=== PATIENT | male | born 1965 | race Two or more races ===

== ENCOUNTER 2022-04-14 20:36 | Inpatient (IN) | payer MEDICAID, OTHER ==
[~2022-04-14] VITALS: Ht 170.2 cm; Wt 63.4 kg
[~2022-04-14 20:36] MED LIST: CLOPIDOGREL BISULFATE 75 MG TAB PO ONE
[2022-04-14] MEDS ORDERED: ATROPINE SULF 0.5 MG/5ML SYR ONE (20:40)
[2022-04-14] MEDS ORDERED: DOPamine 1600MCG/ML D5W 250 ML IV ONE ×2 (20:58→22:00)
[2022-04-14] MEDS ORDERED: SODIUM CHLORIDE 0.9% 1,000 ML IV ONE (21:00)
[2022-04-14] MEDS ORDERED: CALCIUM GLUC 1,000mg/50ml-NS 50 ML IV ONE (21:00)
[2022-04-14] MEDS ORDERED: MAGNESIUM SULFATE 1GM/100ML 100 ML IV SCH (21:00)
[2022-04-14] MEDS ORDERED: ASPirin 325 MG TAB PO ONE (21:00)
[2022-04-14] MEDS ORDERED: EPINEPHrine HCL 1 MG/10 ML SYRG ONE ×2 (21:15→21:56)
[2022-04-14] MEDS ORDERED: NITROGLYCERIN 0.4 MG SL TAB SL PRN (21:30)
[2022-04-14 21:31] LABS: Basophils # (auto) 0 10 ^3/uL (0-0.2); Basophils % (auto) 0.3 % (0.0-2.0); Eosinophils # (auto) 0.1 10 ^3/uL (0-0.8); Eosinophils % (auto) 0.6 % (0.0-7.0); Hematocrit 34.9 % (41.0-53.0); Hemoglobin 11.7 g/dL (13.5-17.5); Lymphocytes # (auto) 1.5 10 ^3/uL (0.4-5.4); Mean Corpuscular Hemoglobin 28.9 pg (28.0-32.0); Mean Corpuscular Hgb Conc. 33.6 g/dL (32.0-36.0); Mean Corpuscular Volume 86.1 fL (80.0-100.0); Monocytes % (auto) 10.9 % (0.0-12.0); Neutrophils # (auto) 6.4 10 ^3/uL (1.6-8.6); Neutrophils % (auto) 71.2 % (37.0-80.0); Nucleated Red Blood Cells % 0.1 %; Red Blood Cells 4.06 10^6/uL (4.5-5.90); Red Cell Distribution Width 12.6 % (11.8-14.3); White Blood Cell 8.9 10^3/uL (4.4-10.8)
[2022-04-14] MEDS ORDERED: fentaNYL CITRATE 100 MCG/2 ML VL ONE (21:32)
[2022-04-14] MEDS ORDERED: ANGIOMAX 250 MG VIAL IV ONE (21:32)
[2022-04-14] MEDS ORDERED: MIDAZOLAM HCL 2MG/2ML 2ml VIAL (1mg/ml) ONE (21:32)
[2022-04-14] MEDS ORDERED: LIDOCAINE 2%HCL (LOCAL ANESTH.) INJ 20ML MDV ONE (21:33)
[2022-04-14] MEDS ORDERED: IODIXANOL 320MG/ML 100ML BTL IV ONE ×2 (21:33→21:39)
[2022-04-14] MEDS ORDERED: SODIUM CHL 0.9% 50 ML ONE (21:33)
[2022-04-14 21:47] LABS: Albumin 2.6 g/dL (3.4-5.0); Calcium 7.5 mg/dL (8.5-10.1); Potassium 4.3 mmol/L (3.5-5.1)
[2022-04-14 21:49] LABS: Partial Thromboplastin Time 28.8 sec (24.6-33.4)
[2022-04-14 21:50] LABS: BUN/Creatinine Ratio 16.4; Bilirubin, Total 0.9 mg/dL (0.2-1.0)
[2022-04-14 21:53] LABS: Salicylate < 1.7 mg/dL (2.8-20.0)
[2022-04-14] MEDS ORDERED: ATROPINE SULF 1 MG/10ml SYR ONE (21:56)
[2022-04-14 21:57] LABS: Acetaminophen 4.8 ug/mL (10-30)
[2022-04-14 21:58] LABS: Lactic Acid w/Reflex 2.4 mmol/L (0.4-2.0)
[2022-04-14] MEDS ORDERED: ONDANSETRON HCL 4 MG/2 ML VIAL ONE (21:58)
[2022-04-14 22:09] LABS: Cholesterol 175 mg/dL (< 200); Triglycerides 85 mg/dL (< 150)
[2022-04-14] MEDS ORDERED: TICAGRELOR 90 MG TAB ONE (22:10)
[2022-04-14] MEDS ORDERED: ASPirin 81 mg TAB ONE (22:10)
[2022-04-14 22:12] LABS: HDL Cholesterol 64 mg/dL (40-59); LDL Cholesterol 95 mg/dL (< 100)
[2022-04-14] MEDS ORDERED: FUROSEMIDE 20 MG/2 ML VIAL ONE (22:12)
[2022-04-14 22:25] VITALS: BP 79/54
[2022-04-14 22:50] VITALS: BP 92/65
[2022-04-14 23:05] VITALS: BP 102/71
[2022-04-14 23:58] VITALS: BP 117/77
[2022-04-15] VITALS (96 sets, daily range): BP systolic 58–146; BP diastolic 35–85
[2022-04-15] MEDS: ONDANSETRON HCL 4 MG/2 ML VIAL IV PRN ×2 (01:00→07:57)
[2022-04-15 04:56] LABS: Basophils # (auto) 0 10 ^3/uL (0-0.2); Basophils % (auto) 0.3 % (0.0-2.0); Eosinophils # (auto) 0 10 ^3/uL (0-0.8); Eosinophils % (auto) 0.1 % (0.0-7.0); Hematocrit 36.8 % (41.0-53.0); Hemoglobin 12.8 g/dL (13.5-17.5); Lymphocytes # (auto) 1.3 10 ^3/uL (0.4-5.4); Mean Corpuscular Hemoglobin 28.7 pg (28.0-32.0); Mean Corpuscular Hgb Conc. 34.8 g/dL (32.0-36.0); Mean Corpuscular Volume 82.5 fL (80.0-100.0); Monocytes # (auto) 0.9 10 ^3/uL (0-1.3); Monocytes % (auto) 9.5 % (0.0-12.0); Neutrophils % (auto) 76.1 % (37.0-80.0); Red Blood Cells 4.47 10^6/uL (4.5-5.90); Red Cell Distribution Width 12.9 % (11.8-14.3); White Blood Cell 9.2 10^3/uL (4.4-10.8)
[2022-04-15 05:24] LABS: Albumin 2.9 g/dL (3.4-5.0); Potassium 3.7 mmol/L (3.5-5.1)
[2022-04-15 05:28] LABS: BUN/Creatinine Ratio 17.5; Bilirubin, Total 0.8 mg/dL (0.2-1.0); Total Protein 6.3 g/dL (6.4-8.2)
[2022-04-15] MEDS ORDERED: DEXTROSE (50%) 50ML SYRG IV PRN (10:15)
[2022-04-15] MEDS: ACCU-CHEK COMFORT CURVE STRIP VI SCH ×3 (11:09→22:14)
[2022-04-15] MEDS: INSULIN LANTUS (GLARGINE) 1 /0.01ml (100units/ml) SC SCH (11:09)
[2022-04-15] MEDS: InsuLIN REG 1unit/0.01ml Soln (100units/ml) SC SCH ×4 (11:10→22:27)
[2022-04-15] MEDS ORDERED: METOCLOPRAMIDE HCL 5MG/ml INJ 2ml VIAL IV PRN (12:00)
[2022-04-15] MEDS ORDERED: METOCLOPRAMIDE HCL 5MG/ml INJ 2ml VIAL ONE (12:01)
[2022-04-15] MEDS ORDERED: BRIMONIDINE 0.2% OPTH Soln 5ml EACHEYE SCH (14:00)
[2022-04-15] MEDS: ASPirin 81 mg TAB PO SCH (18:38)
[2022-04-15] MEDS: ATORVASTATIN 20 MG TAB PO SCH (18:39)
[2022-04-15] MEDS: DOPamine 1600MCG/ML D5W 250 ML IV SCH (20:10)
[2022-04-15] MEDS ORDERED: LATANOPROST 0.005 % OPTH(EYE) SOL 2.5ML EACHEYE SCH (22:00)
[2022-04-15] MEDS: EYE PO SCH (22:14)
[2022-04-15] MEDS: TIMOLOL PO SCH (22:14)
[2022-04-15] MEDS: DORZOLAMIDE PO SCH (22:14)
[2022-04-15] MEDS: BRIMONIDINE 0.2% OPTH Soln 5ml RIGHTEYE SCH (22:14)
[2022-04-15] MEDS: LATANOPROST 0.005 % OPTH(EYE) SOL 2.5ML RIGHTEYE SCH (22:14)
[2022-04-16] VITALS (96 sets, daily range): BP systolic 82–161; BP diastolic 47–95
[2022-04-16] MEDS: EYE PO SCH ×3 (05:59→21:35)
[2022-04-16] MEDS: TIMOLOL PO SCH ×3 (05:59→21:35)
[2022-04-16] MEDS: BRIMONIDINE 0.2% OPTH Soln 5ml RIGHTEYE SCH ×3 (05:59→21:36)
[2022-04-16] MEDS: DORZOLAMIDE PO SCH ×3 (05:59→21:35)
[2022-04-16] MEDS: MORPHINE SULFATE INJ 2 MG/ml SYRG IV PRN ×2 (06:10→16:46)
[2022-04-16] MEDS: ONDANSETRON HCL 4 MG/2 ML VIAL IV PRN (06:10)
[2022-04-16] MEDS: ACCU-CHEK COMFORT CURVE STRIP VI SCH ×4 (06:24→21:36)
[2022-04-16] MEDS: InsuLIN REG 1unit/0.01ml Soln (100units/ml) SC SCH ×3 (06:52→17:36)
[2022-04-16] MEDS: INSULIN LANTUS (GLARGINE) 1 /0.01ml (100units/ml) SC SCH (06:53)
[2022-04-16 09:14] LABS: Basophils # (auto) 0 10 ^3/uL (0-0.2); Basophils % (auto) 0.4 % (0.0-2.0); Eosinophils # (auto) 0.1 10 ^3/uL (0-0.8); Eosinophils % (auto) 0.7 % (0.0-7.0); Hematocrit 36.5 % (41.0-53.0); Hemoglobin 13.1 g/dL (13.5-17.5); Lymphocytes # (auto) 1.6 10 ^3/uL (0.4-5.4); Lymphocytes % (auto) 21.1 % (10.0-50.0); Mean Corpuscular Hemoglobin 29.1 pg (28.0-32.0); Mean Corpuscular Hgb Conc. 35.8 g/dL (32.0-36.0); Mean Corpuscular Volume 81.3 fL (80.0-100.0); Monocytes # (auto) 0.8 10 ^3/uL (0-1.3); Neutrophils # (auto) 5.2 10 ^3/uL (1.6-8.6); Neutrophils % (auto) 67.8 % (37.0-80.0); Red Blood Cells 4.49 10^6/uL (4.5-5.90); Red Cell Distribution Width 12.5 % (11.8-14.3); White Blood Cell 7.6 10^3/uL (4.4-10.8)
[2022-04-16 09:18] LABS: Albumin 2.9 g/dL (3.4-5.0); Calcium 8.1 mg/dL (8.5-10.1); Potassium 3.6 mmol/L (3.5-5.1)
[2022-04-16 09:21] LABS: BUN/Creatinine Ratio 21.3; Bilirubin, Total 0.9 mg/dL (0.2-1.0)
[2022-04-16] MEDS: CLOPIDOGREL BISULFATE 75 MG TAB PO SCH (09:42)
[2022-04-16] MEDS: ATORVASTATIN 20 MG TAB PO SCH (09:42)
[2022-04-16] MEDS: ASPirin 81 mg TAB PO SCH (09:42)
[2022-04-16] MEDS ORDERED: SODIUM CHLORIDE 0.9% 250 ML IV ONE (14:00)
[2022-04-16] MEDS: DOPamine 1600MCG/ML D5W 250 ML IV SCH (16:32)
[2022-04-16] MEDS: LATANOPROST 0.005 % OPTH(EYE) SOL 2.5ML RIGHTEYE SCH (21:41)
[2022-04-17] VITALS (90 sets, daily range): BP systolic 69–135; BP diastolic 39–108
[2022-04-17] MEDS: EYE PO SCH ×3 (05:44→21:44)
[2022-04-17] MEDS: DORZOLAMIDE PO SCH ×3 (05:44→21:44)
[2022-04-17] MEDS: TIMOLOL PO SCH ×3 (05:44→21:44)
[2022-04-17] MEDS: BRIMONIDINE 0.2% OPTH Soln 5ml RIGHTEYE SCH ×3 (05:45→21:43)
[2022-04-17] MEDS: ACCU-CHEK COMFORT CURVE STRIP VI SCH ×4 (06:26→21:48)
[2022-04-17] MEDS: InsuLIN REG 1unit/0.01ml Soln (100units/ml) SC SCH ×4 (06:27→21:53)
[2022-04-17] MEDS: INSULIN LANTUS (GLARGINE) 1 /0.01ml (100units/ml) SC SCH (06:29)
[2022-04-17] MEDS: CLOPIDOGREL BISULFATE 75 MG TAB PO SCH (09:03)
[2022-04-17] MEDS: ATORVASTATIN 20 MG TAB PO SCH (09:04)
[2022-04-17] MEDS: ASPirin 81 mg TAB PO SCH (09:04)
[2022-04-17] MEDS: DOPamine 1600MCG/ML D5W 250 ML IV SCH (14:42)
[2022-04-17] MEDS ORDERED: SENNA 8.6 MG TAB PO ONE (15:45)
[2022-04-17] MEDS: LATANOPROST 0.005 % OPTH(EYE) SOL 2.5ML RIGHTEYE SCH (21:43)
[2022-04-17] MEDS ORDERED: SENNA 8.6 MG TAB PO SCH (22:00)
[2022-04-17] MEDS ORDERED: PHENYLEPHRINE IV 250 ML IV ONE (23:39)
[2022-04-18] VITALS (94 sets, daily range): BP systolic 61–158; BP diastolic 28–97
[2022-04-18 05:00] LABS: Basophils # (auto) 0 10 ^3/uL (0-0.2); Basophils % (auto) 0.5 % (0.0-2.0); Eosinophils # (auto) 0.2 10 ^3/uL (0-0.8); Eosinophils % (auto) 2.4 % (0.0-7.0); Hematocrit 37.6 % (41.0-53.0); Hemoglobin 13.1 g/dL (13.5-17.5); Lymphocytes # (auto) 1.6 10 ^3/uL (0.4-5.4); Lymphocytes % (auto) 26.2 % (10.0-50.0); Mean Corpuscular Hemoglobin 28.3 pg (28.0-32.0); Mean Corpuscular Hgb Conc. 34.8 g/dL (32.0-36.0); Mean Corpuscular Volume 81.4 fL (80.0-100.0); Monocytes # (auto) 0.6 10 ^3/uL (0-1.3); Neutrophils # (auto) 3.8 10 ^3/uL (1.6-8.6); Neutrophils % (auto) 60.9 % (37.0-80.0); Red Blood Cells 4.62 10^6/uL (4.5-5.90); Red Cell Distribution Width 12.8 % (11.8-14.3); White Blood Cell 6.3 10^3/uL (4.4-10.8)
[2022-04-18 05:06] LABS: BUN/Creatinine Ratio 28.4; Calcium 8.6 mg/dL (8.5-10.1); Potassium 3.5 mmol/L (3.5-5.1)
[2022-04-18] MEDS: TIMOLOL PO SCH ×3 (06:42→22:46)
[2022-04-18] MEDS: DORZOLAMIDE PO SCH ×3 (06:42→22:46)
[2022-04-18] MEDS: BRIMONIDINE 0.2% OPTH Soln 5ml RIGHTEYE SCH ×3 (06:42→22:46)
[2022-04-18] MEDS: EYE PO SCH ×3 (06:42→22:46)
[2022-04-18] MEDS: InsuLIN REG 1unit/0.01ml Soln (100units/ml) SC SCH ×4 (06:44→22:47)
[2022-04-18] MEDS: ACCU-CHEK COMFORT CURVE STRIP VI SCH ×4 (06:45→22:46)
[2022-04-18] MEDS: INSULIN LANTUS (GLARGINE) 1 /0.01ml (100units/ml) SC SCH (06:55)
[2022-04-18] MEDS: DOPamine 1600MCG/ML D5W 250 ML IV SCH ×2 (06:56→22:50)
[2022-04-18] MEDS: ATORVASTATIN 20 MG TAB PO SCH (11:30)
[2022-04-18] MEDS: CLOPIDOGREL BISULFATE 75 MG TAB PO SCH (11:30)
[2022-04-18] MEDS: ASPirin 81 mg TAB PO SCH (11:30)
[2022-04-18] MEDS ORDERED: SENNA 8.6 MG TAB PO ONE (12:00)
[2022-04-18] MEDS: MORPHINE SULFATE INJ 2 MG/ml SYRG IV PRN ×2 (14:29→18:34)
[2022-04-18] MEDS ORDERED: SODIUM CHLORIDE 0.9% 250 ML IV ONE (14:45)
[2022-04-18] MEDS: LATANOPROST 0.005 % OPTH(EYE) SOL 2.5ML RIGHTEYE SCH (22:46)
[2022-04-19] VITALS (89 sets, daily range): BP systolic 63–153; BP diastolic 39–87
[2022-04-19] MEDS: MORPHINE SULFATE INJ 2 MG/ml SYRG IV PRN (02:44)
[2022-04-19] MEDS: InsuLIN REG 1unit/0.01ml Soln (100units/ml) SC SCH ×4 (07:00→22:00)
[2022-04-19 07:39] LABS: Urine Bacteria NONE SEEN /hpf (None Seen); Urine Blood 3+ /uL (Negative); Urine Specific Gravity 1.017 (1.001-1.035); Urine WBC 4 /hpf (0 - 3)
[2022-04-19] MEDS: INSULIN LANTUS (GLARGINE) 1 /0.01ml (100units/ml) SC SCH (07:39)
[2022-04-19] MEDS: ACCU-CHEK COMFORT CURVE STRIP VI SCH ×4 (07:44→23:15)
[2022-04-19] MEDS: DORZOLAMIDE PO SCH ×3 (07:46→23:15)
[2022-04-19] MEDS: BRIMONIDINE 0.2% OPTH Soln 5ml RIGHTEYE SCH ×3 (07:46→23:15)
[2022-04-19] MEDS: TIMOLOL PO SCH ×3 (07:46→23:15)
[2022-04-19] MEDS: EYE PO SCH ×3 (07:46→23:15)
[2022-04-19] MEDS: ATORVASTATIN 20 MG TAB PO SCH (10:34)
[2022-04-19] MEDS: ASPirin 81 mg TAB PO SCH (10:34)
[2022-04-19] MEDS: CLOPIDOGREL BISULFATE 75 MG TAB PO SCH (10:34)
[2022-04-19] MEDS: SENNA 8.6 MG TAB PO SCH (10:37)
[2022-04-19] MEDS ORDERED: SODIUM CHLORIDE 0.9% 500 ML IV ONE (11:45)
[2022-04-19] MEDS: MIDODRINE HCL 10 MG TAB PO SCH ×2 (12:27→18:17)
[2022-04-19] MEDS: ACETAMINOPHEN 500 MG TAB PO PRN (12:38)
[2022-04-19] MEDS: DOPamine 1600MCG/ML D5W 250 ML IV SCH (12:39)
[2022-04-19] MEDS ORDERED: TAMSULOSIN HYDROCHLORIDE 0.4 MG CAP PO SCH ×2 (18:00→19:00)
[2022-04-19] MEDS ORDERED: cefTRIAXone 1GM/50ML D5W 50 ML IV ONE (20:00)
[2022-04-19] MEDS: LATANOPROST 0.005 % OPTH(EYE) SOL 2.5ML RIGHTEYE SCH (23:15)
[2022-04-20] VITALS (89 sets, daily range): BP systolic 52–121; BP diastolic 27–76
[2022-04-20] MEDS: ACETAMINOPHEN 500 MG TAB PO PRN ×3 (01:03→21:13)
[2022-04-20] MEDS: TIMOLOL PO SCH ×3 (06:00→23:20)
[2022-04-20] MEDS: EYE PO SCH ×3 (06:00→23:20)
[2022-04-20] MEDS: BRIMONIDINE 0.2% OPTH Soln 5ml RIGHTEYE SCH ×3 (06:00→23:19)
[2022-04-20] MEDS: DORZOLAMIDE PO SCH ×3 (06:00→23:20)
[2022-04-20] MEDS: MIDODRINE HCL 10 MG TAB PO SCH ×3 (06:00→18:12)
[2022-04-20] MEDS: InsuLIN REG 1unit/0.01ml Soln (100units/ml) SC SCH ×4 (07:00→22:00)
[2022-04-20] MEDS: ACCU-CHEK COMFORT CURVE STRIP VI SCH ×4 (07:00→22:00)
[2022-04-20] MEDS: INSULIN LANTUS (GLARGINE) 1 /0.01ml (100units/ml) SC SCH (07:00)
[2022-04-20] MEDS: DOPamine 1600MCG/ML D5W 250 ML IV SCH ×2 (07:08→21:30)
[2022-04-20] MEDS ORDERED: cefTRIAXone 1GM/50ML D5W 50 ML IV SCH (09:00)
[2022-04-20] MEDS: ASPirin 81 mg TAB PO SCH (09:34)
[2022-04-20] MEDS: ATORVASTATIN 20 MG TAB PO SCH (09:35)
[2022-04-20] MEDS: SENNA 8.6 MG TAB PO SCH (09:35)
[2022-04-20] MEDS: CLOPIDOGREL BISULFATE 75 MG TAB PO SCH (09:35)
[2022-04-20] MEDS ORDERED: LACTULOSE 20Gm/30ML SOLN PO PRN (11:45)
[2022-04-20 11:56] LABS: Basophils # (auto) 0.2 10 ^3/uL (0-0.2); Basophils % (auto) 2.5 % (0.0-2.0); Eosinophils # (auto) 0.3 10 ^3/uL (0-0.8); Eosinophils % (auto) 4.7 % (0.0-7.0); Hematocrit 36.7 % (41.0-53.0); Hemoglobin 12.5 g/dL (13.5-17.5); Lymphocytes # (auto) 1.1 10 ^3/uL (0.4-5.4); Lymphocytes % (auto) 18.1 % (10.0-50.0); Mean Corpuscular Hemoglobin 27.5 pg (28.0-32.0); Mean Corpuscular Hgb Conc. 34.1 g/dL (32.0-36.0); Mean Corpuscular Volume 80.8 fL (80.0-100.0); Monocytes # (auto) 0.4 10 ^3/uL (0-1.3); Monocytes % (auto) 6.5 % (0.0-12.0); Neutrophils # (auto) 4.2 10 ^3/uL (1.6-8.6); Neutrophils % (auto) 68.2 % (37.0-80.0); Red Blood Cells 4.54 10^6/uL (4.5-5.90); Red Cell Distribution Width 12.4 % (11.8-14.3); White Blood Cell 6.2 10^3/uL (4.4-10.8)
[2022-04-20 12:14] LABS: Albumin 2.5 g/dL (3.4-5.0); BUN/Creatinine Ratio 35.2; Calcium 7.7 mg/dL (8.5-10.1); Potassium 4.5 mmol/L (3.5-5.1)
[2022-04-20 12:17] LABS: Bilirubin, Total 0.3 mg/dL (0.2-1.0)
[2022-04-20] MEDS ORDERED: SODIUM CHLORIDE 0.9% 1,500 ML IV ONE (15:45)
[2022-04-20] MEDS: LATANOPROST 0.005 % OPTH(EYE) SOL 2.5ML RIGHTEYE SCH (23:20)
[2022-04-21] VITALS (95 sets, daily range): BP systolic 69–128; BP diastolic 35–75
[2022-04-21 05:07] LABS: Basophils # (auto) 0.1 10 ^3/uL (0-0.2); Basophils % (auto) 0.7 % (0.0-2.0); Eosinophils # (auto) 0.4 10 ^3/uL (0-0.8); Eosinophils % (auto) 5.1 % (0.0-7.0); Hematocrit 34.4 % (41.0-53.0); Lymphocytes # (auto) 1.8 10 ^3/uL (0.4-5.4); Lymphocytes % (auto) 23.4 % (10.0-50.0); Mean Corpuscular Hemoglobin 28.4 pg (28.0-32.0); Mean Corpuscular Hgb Conc. 34.8 g/dL (32.0-36.0); Mean Corpuscular Volume 81.6 fL (80.0-100.0); Monocytes # (auto) 0.6 10 ^3/uL (0-1.3); Monocytes % (auto) 7.6 % (0.0-12.0); Neutrophils # (auto) 4.9 10 ^3/uL (1.6-8.6); Neutrophils % (auto) 63.2 % (37.0-80.0); Red Blood Cells 4.21 10^6/uL (4.5-5.90); Red Cell Distribution Width 12.4 % (11.8-14.3); White Blood Cell 7.7 10^3/uL (4.4-10.8)
[2022-04-21 05:22] LABS: Albumin 2.6 g/dL (3.4-5.0); Calcium 7.9 mg/dL (8.5-10.1); Potassium 4.1 mmol/L (3.5-5.1)
[2022-04-21 05:24] LABS: Bilirubin, Total 0.3 mg/dL (0.2-1.0); Total Protein 5.6 g/dL (6.4-8.2)
[2022-04-21] MEDS: EYE PO SCH ×3 (06:41→21:49)
[2022-04-21] MEDS: DORZOLAMIDE PO SCH ×3 (06:41→21:49)
[2022-04-21] MEDS: TIMOLOL PO SCH ×3 (06:41→21:49)
[2022-04-21] MEDS: BRIMONIDINE 0.2% OPTH Soln 5ml RIGHTEYE SCH ×3 (06:44→21:48)
[2022-04-21] MEDS: ACCU-CHEK COMFORT CURVE STRIP VI SCH ×4 (06:44→21:44)
[2022-04-21] MEDS: MIDODRINE HCL 10 MG TAB PO SCH ×3 (06:45→18:02)
[2022-04-21] MEDS: INSULIN LANTUS (GLARGINE) 1 /0.01ml (100units/ml) SC SCH (06:51)
[2022-04-21] MEDS: InsuLIN REG 1unit/0.01ml Soln (100units/ml) SC SCH ×4 (06:51→21:52)
[2022-04-21] MEDS: ASPirin 81 mg TAB PO SCH (10:31)
[2022-04-21] MEDS: CLOPIDOGREL BISULFATE 75 MG TAB PO SCH (10:32)
[2022-04-21] MEDS: ATORVASTATIN 20 MG TAB PO SCH (10:32)
[2022-04-21] MEDS: SENNA 8.6 MG TAB PO SCH (10:32)
[2022-04-21] MEDS: LATANOPROST 0.005 % OPTH(EYE) SOL 2.5ML RIGHTEYE SCH (21:48)
[2022-04-22] VITALS (32 sets, daily range): BP systolic 84–109; BP diastolic 50–71
[2022-04-22 05:19] LABS: Basophils # (auto) 0 10 ^3/uL (0-0.2); Basophils % (auto) 0.8 % (0.0-2.0); Eosinophils # (auto) 0.3 10 ^3/uL (0-0.8); Eosinophils % (auto) 4.3 % (0.0-7.0); Hematocrit 30.7 % (41.0-53.0); Hemoglobin 10.9 g/dL (13.5-17.5); Lymphocytes # (auto) 1.5 10 ^3/uL (0.4-5.4); Lymphocytes % (auto) 24.6 % (10.0-50.0); Mean Corpuscular Hemoglobin 28.5 pg (28.0-32.0); Mean Corpuscular Hgb Conc. 35.4 g/dL (32.0-36.0); Mean Corpuscular Volume 80.6 fL (80.0-100.0); Monocytes # (auto) 0.6 10 ^3/uL (0-1.3); Monocytes % (auto) 10.4 % (0.0-12.0); Neutrophils # (auto) 3.6 10 ^3/uL (1.6-8.6); Neutrophils % (auto) 59.9 % (37.0-80.0); Red Blood Cells 3.81 10^6/uL (4.5-5.90); Red Cell Distribution Width 12.7 % (11.8-14.3)
[2022-04-22 05:35] LABS: Albumin 2.5 g/dL (3.4-5.0); BUN/Creatinine Ratio 31.7; Calcium 7.8 mg/dL (8.5-10.1); Potassium 3.8 mmol/L (3.5-5.1)
[2022-04-22 05:47] LABS: Bilirubin, Total 0.3 mg/dL (0.2-1.0); Total Protein 5.2 g/dL (6.4-8.2)
[2022-04-22] MEDS: EYE PO SCH (06:07)
[2022-04-22] MEDS: BRIMONIDINE 0.2% OPTH Soln 5ml RIGHTEYE SCH (06:07)
[2022-04-22] MEDS: DORZOLAMIDE PO SCH (06:07)
[2022-04-22] MEDS: MIDODRINE HCL 10 MG TAB PO SCH (06:07)
[2022-04-22] MEDS: TIMOLOL PO SCH (06:07)
[2022-04-22] MEDS: INSULIN LANTUS (GLARGINE) 1 /0.01ml (100units/ml) SC SCH (07:00)
[2022-04-22] MEDS: InsuLIN REG 1unit/0.01ml Soln (100units/ml) SC SCH ×2 (07:00→11:39)
[2022-04-22] MEDS: ACCU-CHEK COMFORT CURVE STRIP VI SCH ×2 (07:23→11:39)
[2022-04-22] MEDS ORDERED: ATOR20TA50 PO (09:48)
[2022-04-22] MEDS ORDERED: CLOP75TA70 PO (09:48)
[2022-04-22] MEDS ORDERED: ASPI-325 PO (09:48)
[2022-04-22] MEDS: ASPirin 81 mg TAB PO SCH (09:59)
[2022-04-22] MEDS: SENNA 8.6 MG TAB PO SCH (10:00)
[2022-04-22] MEDS: CLOPIDOGREL BISULFATE 75 MG TAB PO SCH (10:00)
[2022-04-22] MEDS: ATORVASTATIN 20 MG TAB PO SCH (10:01)
== END 2022-04-22 12:04 | disposition home or self-care (01) | DRG 174 ==
LOC: ER 20:36 → EDBD 20:36 → TELE 21:20 → DOU IN ICU 23:46 → ICU CENTRL 04-15 00:06
PROVIDERS: ADMIT Registered Nurse; ATTEND Internal Medicine Pulmonary Disease
PROC: B211YZZ Fluoroscopy of Multiple Coronary Arteries using Other Contrast (ICD-10-PCS; principal; 2022-04-14)
PROC: 027034Z Dilation of Coronary Artery, One Artery with Drug-eluting Intraluminal Device, Percutaneous Approach (ICD-10-PCS; 2022-04-14)
PROC: 4A023N7 Measurement of Cardiac Sampling and Pressure, Left Heart, Percutaneous Approach (ICD-10-PCS; 2022-04-14)
PROC: B41JYZZ Fluoroscopy of Other Lower Arteries using Other Contrast (ICD-10-PCS; 2022-04-14)
DX: I21.19 ST elevation (STEMI) myocardial infarction involving other coronary artery of inferior wall (principal); R57.0 Cardiogenic shock; I95.9 Hypotension, unspecified; I48.91 Unspecified atrial fibrillation; E11.65 Type 2 diabetes mellitus with hyperglycemia; I49.8 Other specified cardiac arrhythmias; Z20.822 Contact with and (suspected) exposure to COVID-19; I10 Essential (primary) hypertension; R31.0 Gross hematuria; Z79.02 Long term (current) use of antithrombotics/antiplatelets; Z79.4 Long term (current) use of insulin; Z79.82 Long term (current) use of aspirin
CPT/HCPCS: 36415; 36600; 71045; 75710; 80048; 80053; 80061; 80329; 81001; 82010; 82533; 82553; 82805; 82962; 83036; 83605; 83690; 83735; 83930; 84154; 84443; 84484; 85025; 85610; 85730; 87040; 87077; 87081; 87186; 87426; 92928; 93005; 93306; 93458; 96365; 96368; 99152; 99291; C1874; G0378; J0461; J0696; J1815; J2250; J2405; Q9967

== ENCOUNTER 2022-05-27 14:28 | Inpatient (IN) | payer MEDICAID ==
[~2022-05-27] VITALS: Ht 165.1 cm; Wt 63.5 kg
[~2022-05-27 14:28] MED LIST changes: +ASPI-325 PO; +ATOR20TA50 PO; +CLOP75TA70 PO; -CLOPIDOGREL BISULFATE 75 MG TAB PO ONE
[2022-05-27] MEDS ORDERED: SODIUM CHLORIDE 0.9% 500 ML IV ONE (15:00)
[2022-05-27 15:14] LABS: Basophils # (auto) 0 10 ^3/uL (0-0.2); Basophils % (auto) 0.9 % (0.0-2.0); Eosinophils # (auto) 0.2 10 ^3/uL (0-0.8); Eosinophils % (auto) 3.6 % (0.0-7.0); Hematocrit 33.1 % (41.0-53.0); Hemoglobin 11.5 g/dL (13.5-17.5); Lymphocytes # (auto) 1.7 10 ^3/uL (0.4-5.4); Lymphocytes % (auto) 36.8 % (10.0-50.0); Mean Corpuscular Hemoglobin 28.1 pg (28.0-32.0); Mean Corpuscular Hgb Conc. 34.8 g/dL (32.0-36.0); Mean Corpuscular Volume 80.7 fL (80.0-100.0); Monocytes # (auto) 0.3 10 ^3/uL (0-1.3); Monocytes % (auto) 6.6 % (0.0-12.0); Neutrophils # (auto) 2.4 10 ^3/uL (1.6-8.6); Neutrophils % (auto) 52.1 % (37.0-80.0); Red Blood Cells 4.11 10^6/uL (4.5-5.90); Red Cell Distribution Width 13.5 % (11.8-14.3); White Blood Cell 4.6 10^3/uL (4.4-10.8)
[2022-05-27 15:27] LABS: Albumin 3.3 g/dL (3.4-5.0); Calcium 8.6 mg/dL (8.5-10.1); Potassium 4.5 mmol/L (3.5-5.1)
[2022-05-27 15:34] LABS: Bilirubin, Total 0.5 mg/dL (0.2-1.0); Total Protein 6.2 g/dL (6.4-8.2)
[2022-05-27 15:35] LABS: INR 0.93 (0.9-1.15); Partial Thromboplastin Time 26.6 sec (24.6-33.4)
[2022-05-27] MEDS ORDERED: MORPHINE SULFATE INJ 2 MG/ml SYRG IV PRN (21:00)
[2022-05-27] MEDS ORDERED: ONDANSETRON HCL 4 MG/2 ML VIAL IV PRN (21:00)
[2022-05-27] MEDS ORDERED: TEMAZEPAM 15 MG CAP PO PRN (21:00)
[2022-05-27] MEDS ORDERED: NITROGLYCERIN 0.4 MG SL TAB SL PRN (21:00)
[2022-05-28 04:41] LABS: Basophils # (auto) 0 10 ^3/uL (0-0.2); Eosinophils # (auto) 0.2 10 ^3/uL (0-0.8); Eosinophils % (auto) 3.6 % (0.0-7.0); Hemoglobin 12.3 g/dL (13.5-17.5); Lymphocytes # (auto) 1.3 10 ^3/uL (0.4-5.4); Lymphocytes % (auto) 26.3 % (10.0-50.0); Mean Corpuscular Hemoglobin 28.1 pg (28.0-32.0); Mean Corpuscular Hgb Conc. 34.1 g/dL (32.0-36.0); Mean Corpuscular Volume 82.3 fL (80.0-100.0); Monocytes # (auto) 0.4 10 ^3/uL (0-1.3); Monocytes % (auto) 7.2 % (0.0-12.0); Neutrophils # (auto) 3.1 10 ^3/uL (1.6-8.6); Neutrophils % (auto) 61.9 % (37.0-80.0); Nucleated Red Blood Cells % 0.1 %; Red Blood Cells 4.38 10^6/uL (4.5-5.90); Red Cell Distribution Width 13.7 % (11.8-14.3)
[2022-05-28 04:57] LABS: Calcium 8.9 mg/dL (8.5-10.1); Potassium 4.6 mmol/L (3.5-5.1)
[2022-05-28] MEDS: ATORVASTATIN 20 MG TAB PO SCH ×2 (05:19→22:28)
[2022-05-28] MEDS: ACETAMINOPHEN 325 MG TAB PO PRN ×3 (05:22→22:28)
[2022-05-28] MEDS: ASPirin 81 mg TAB PO SCH (13:18)
[2022-05-28] MEDS: CLOPIDOGREL BISULFATE 75 MG TAB PO SCH (13:18)
[2022-05-28] MEDS: PANTOPRAZOLE 40 MG TAB PO SCH (13:19)
[2022-05-28] MEDS: ENOXAPARIN SOD 40 MG/0.4 ML SYRINGE SC SCH (13:19)
[2022-05-28] MEDS ORDERED: DEXTROSE (50%) 50ML SYRG IV PRN (18:45)
[2022-05-28 22:00] VITALS: BP 119/73
[2022-05-28] MEDS: InsuLIN REG 1unit/0.01ml Soln (100units/ml) SC SCH (22:00)
[2022-05-28] MEDS ORDERED: PATIENTS OWN MEDICATION EACHEYE SCH ×2 (22:00)
[2022-05-28 22:10] VITALS: BP 119/73
[2022-05-28] MEDS: ACCU-CHEK COMFORT CURVE STRIP VI SCH (22:20)
[2022-05-29 02:07] LABS: Urine WBC None Seen /hpf (0 - 3)
[2022-05-29 02:14] LABS: Urine Bacteria NONE SEEN /hpf (None Seen); Urine Blood Negative /uL (Negative); Urine Specific Gravity 1.009 (1.001-1.035); Urine Sperm PRESENT /hpf (None Seen)
[2022-05-29 05:00] VITALS: BP 127/80
[2022-05-29] MEDS: ACCU-CHEK COMFORT CURVE STRIP VI SCH ×4 (06:44→21:59)
[2022-05-29] MEDS: InsuLIN REG 1unit/0.01ml Soln (100units/ml) SC SCH ×4 (06:44→21:58)
[2022-05-29 07:37] LABS: Cholesterol 127 mg/dL (< 200)
[2022-05-29 07:40] LABS: HDL Cholesterol 69 mg/dL (40-59); LDL Cholesterol 57 mg/dL (< 100); Triglycerides 71 mg/dL (< 150)
[2022-05-29 08:00] VITALS: BP 116/68
[2022-05-29] MEDS: ACETAMINOPHEN 325 MG TAB PO PRN (10:10)
[2022-05-29] MEDS: ENOXAPARIN SOD 40 MG/0.4 ML SYRINGE SC SCH (10:10)
[2022-05-29] MEDS: PANTOPRAZOLE 40 MG TAB PO SCH (10:10)
[2022-05-29] MEDS: CLOPIDOGREL BISULFATE 75 MG TAB PO SCH (10:10)
[2022-05-29] MEDS: ASPirin 81 mg TAB PO SCH (10:15)
[2022-05-29 12:00] VITALS: BP 117/71
[2022-05-29] MEDS ORDERED: BRIMONIDINE 0.2% OPTH Soln 5ml RIGHTEYE SCH ×2 (12:00→14:00)
[2022-05-29] MEDS: BRIMONIDINE 0.2% RIGHTEYE SCH ×3 (13:26→21:52)
[2022-05-29] MEDS: EYE RIGHTEYE SCH ×2 (14:30→21:50)
[2022-05-29] MEDS: DORZOLAMIDE TIMOLOL RIGHTEYE SCH ×2 (14:30→21:50)
[2022-05-29 16:00] VITALS: BP 115/69
[2022-05-29] MEDS: ATORVASTATIN 20 MG TAB PO SCH (21:51)
[2022-05-29] MEDS: LATANOPROST 0.005 % OPTH(EYE) SOL 2.5ML RIGHTEYE SCH (21:56)
[2022-05-29 22:00] VITALS: BP 111/59
[2022-05-30 05:00] VITALS: BP 105/65
[2022-05-30] MEDS: BRIMONIDINE 0.2% RIGHTEYE SCH ×3 (05:34→21:37)
[2022-05-30] MEDS: DORZOLAMIDE TIMOLOL RIGHTEYE SCH ×3 (05:34→21:37)
[2022-05-30] MEDS: EYE RIGHTEYE SCH ×3 (05:34→21:37)
[2022-05-30] MEDS: ACCU-CHEK COMFORT CURVE STRIP VI SCH ×4 (06:25→21:47)
[2022-05-30] MEDS: InsuLIN REG 1unit/0.01ml Soln (100units/ml) SC SCH ×4 (06:26→21:49)
[2022-05-30 08:00] VITALS: BP 107/72
[2022-05-30] MEDS: PANTOPRAZOLE 40 MG TAB PO SCH (09:51)
[2022-05-30] MEDS: CLOPIDOGREL BISULFATE 75 MG TAB PO SCH (09:51)
[2022-05-30] MEDS: ASPirin 81 mg TAB PO SCH (09:51)
[2022-05-30] MEDS: ENOXAPARIN SOD 40 MG/0.4 ML SYRINGE SC SCH (09:52)
[2022-05-30 12:00] VITALS: BP 117/72
[2022-05-30 16:00] VITALS: BP 116/75
[2022-05-30] MEDS: ATORVASTATIN 20 MG TAB PO SCH (21:36)
[2022-05-30] MEDS: ACETAMINOPHEN 325 MG TAB PO PRN (21:36)
[2022-05-30] MEDS: LATANOPROST 0.005 % OPTH(EYE) SOL 2.5ML RIGHTEYE SCH (21:38)
[2022-05-30 22:00] VITALS: BP 100/50
[2022-05-31 05:00] VITALS: BP 114/72
[2022-05-31] MEDS: DORZOLAMIDE TIMOLOL RIGHTEYE SCH ×2 (05:38→14:07)
[2022-05-31] MEDS: BRIMONIDINE 0.2% RIGHTEYE SCH ×2 (05:38→14:07)
[2022-05-31] MEDS: EYE RIGHTEYE SCH ×2 (05:38→14:07)
[2022-05-31] MEDS: ACCU-CHEK COMFORT CURVE STRIP VI SCH ×3 (05:58→17:00)
[2022-05-31] MEDS: InsuLIN REG 1unit/0.01ml Soln (100units/ml) SC SCH ×3 (05:59→18:35)
[2022-05-31 09:25] VITALS: BP 107/61
[2022-05-31] MEDS: ENOXAPARIN SOD 40 MG/0.4 ML SYRINGE SC SCH (09:45)
[2022-05-31] MEDS: PANTOPRAZOLE 40 MG TAB PO SCH (09:45)
[2022-05-31] MEDS: ASPirin 81 mg TAB PO SCH (09:45)
[2022-05-31] MEDS: CLOPIDOGREL BISULFATE 75 MG TAB PO SCH (09:45)
[2022-05-31 13:00] VITALS: BP 122/68
[2022-05-31 17:05] VITALS: BP 117/68
[2022-05-31 21:50] VITALS: BP 117/61
[2022-05-31 22:00] VITALS: BP 108/66
== END 2022-05-31 22:30 | disposition home or self-care (01) | DRG 203 ==
LOC: ER 14:28 → TELE 21:03 → TELE-EAST 05-28 21:17
PROVIDERS: ADMIT Nurse Practitioner; ATTEND Internal Medicine Geriatric Medicine
DX: M94.0 Chondrocostal junction syndrome [Tietze] (principal); I95.9 Hypotension, unspecified; E11.319 Type 2 diabetes mellitus with unspecified diabetic retinopathy without macular edema; I25.110 Atherosclerotic heart disease of native coronary artery with unstable angina pectoris; E78.5 Hyperlipidemia, unspecified; H54.62 Unqualified visual loss, left eye, normal vision right eye; H53.9 Unspecified visual disturbance; R51.9 Headache, unspecified; R79.89 Other specified abnormal findings of blood chemistry; Z20.822 Contact with and (suspected) exposure to COVID-19; I25.2 Old myocardial infarction; Z82.49 Family history of ischemic heart disease and other diseases of the circulatory system; Z83.3 Family history of diabetes mellitus; Z95.5 Presence of coronary angioplasty implant and graft
CPT/HCPCS: 36415; 70450; 70551; 71045; 78582; 80048; 80053; 80061; 81001; 82962; 83735; 84484; 85025; 85379; 85610; 85730; 87426; 93005; G0378; J1815

== ENCOUNTER → 2022-06-02 | Outpatient (CLI) | payer MEDICAID ==
[2022-06-02 08:51] LABS: Calcium 9.4 mg/dL (8.5-10.1); Potassium 4.8 mmol/L (3.5-5.1)
[2022-06-02 08:56] LABS: BUN/Creatinine Ratio 31.6; Bilirubin, Total 0.6 mg/dL (0.2-1.0); Total Protein 7.8 g/dL (6.4-8.2)
== END | disposition home or self-care (01) ==
LOC: LAB 07:46
PROVIDERS: ATTEND Internal Medicine
DX: Z12.11 Encounter for screening for malignant neoplasm of colon (principal); E11.9 Type 2 diabetes mellitus without complications
CPT/HCPCS: 36415; 80053; 82043; 83036

== ENCOUNTER → 2022-07-01 | Outpatient (CLI) | payer MEDICAID ==
[2022-07-01 11:40] LABS: Albumin 3.8 g/dL (3.4-5.0); Bilirubin, Direct 0.2 mg/dL (0-0.2)
[2022-07-01 11:43] LABS: Bilirubin, Total 0.6 mg/dL (0.2-1.0); Total Protein 7.3 g/dL (6.4-8.2)
== END | disposition home or self-care (01) ==
LOC: LAB 10:34
PROVIDERS: ATTEND Internal Medicine
DX: Z12.11 Encounter for screening for malignant neoplasm of colon (principal); R79.89 Other specified abnormal findings of blood chemistry
CPT/HCPCS: 36415; 80076; 82270

== ENCOUNTER → 2022-07-24 | Outpatient (CLI) | payer MEDICAID ==
[2022-07-24 11:33] LABS: Albumin 3.8 g/dL (3.4-5.0)
[2022-07-24 11:36] LABS: Bilirubin, Direct 0.1 mg/dL (0-0.2); Bilirubin, Total 0.4 mg/dL (0.2-1.0); Total Protein 7.2 g/dL (6.4-8.2)
== END | disposition home or self-care (01) ==
LOC: LAB 08:38
PROVIDERS: ATTEND Internal Medicine
DX: E11.9 Type 2 diabetes mellitus without complications (principal); E78.5 Hyperlipidemia, unspecified
CPT/HCPCS: 36415; 80076

== ENCOUNTER → 2022-07-27 | Outpatient (CLI) | payer MEDICAID | END | disposition home or self-care (01) | LOC: Rad HDHVI 08:09 | PROVIDERS: ATTEND Internal Medicine Cardiovascular Disease | DX: I77.819 Aortic ectasia, unspecified site (principal); R07.9 Chest pain, unspecified; R42 Dizziness and giddiness | CPT/HCPCS: 93306 ==

== ENCOUNTER → 2022-07-30 | Outpatient (CLI) | payer MEDICAID ==
[~2022-07-30] VITALS: Ht 165.1 cm; Wt 64.4 kg
[~2022-07-30] MED LIST changes: +ADENOSINE 54 MG in GIVE UN-DILUTED 0 ML IV ONE; +ADENOSINE 90 MG/30 ML INJ IV ONE
== END | disposition home or self-care (01) ==
LOC: Rad HDHVI 13:20
PROVIDERS: ATTEND Internal Medicine Cardiovascular Disease
DX: I25.10 Atherosclerotic heart disease of native coronary artery without angina pectoris (principal); I25.2 Old myocardial infarction; E11.9 Type 2 diabetes mellitus without complications; R07.9 Chest pain, unspecified; Z82.49 Family history of ischemic heart disease and other diseases of the circulatory system
CPT/HCPCS: 78452; 93005; 96374; 96375; A9500; J0153

== ENCOUNTER → 2022-11-04 | Outpatient (CLI) | payer MEDICAID ==
[~2022-11-04] MED LIST changes: -ADENOSINE 54 MG in GIVE UN-DILUTED 0 ML IV ONE; -ADENOSINE 90 MG/30 ML INJ IV ONE
[2022-11-04 11:34] LABS: Micro Albumin 83.7 mg/L (0-30.0)
== END | disposition home or self-care (01) ==
LOC: LAB 09:42
PROVIDERS: ATTEND Internal Medicine
DX: E11.42 Type 2 diabetes mellitus with diabetic polyneuropathy (principal)
CPT/HCPCS: 36415; 82043; 82570; 83036

== ENCOUNTER → 2023-02-02 | Outpatient (CLI) | payer MEDICAID ==
[2023-02-02 10:13] VITALS: BP 108/68; PULSE 81; RESP 16; O2SAT 97
[2023-02-02 10:25] VITALS: BP 110/67; PULSE 79; RESP 16; O2SAT 97
== END | disposition home or self-care (01) ==
LOC: CHF HDHVI 10:06
PROVIDERS: ATTEND Internal Medicine Cardiovascular Disease
DX: Z01.818 Encounter for other preprocedural examination (principal); I20.9 Angina pectoris, unspecified; R55 Syncope and collapse; I95.89 Other hypotension; R00.2 Palpitations; I44.4 Left anterior fascicular block; R94.31 Abnormal electrocardiogram [ECG] [EKG]
CPT/HCPCS: 93005; G0463

== ENCOUNTER 2023-02-04 09:59 | Day surgery (SDC) | payer MEDICAID ==
[2023-02-02 11:17] LABS: Basophils # (auto) 0 10 ^3/uL (0-0.2); Basophils % (auto) 0.9 % (0.0-2.0); Eosinophils # (auto) 0.1 10 ^3/uL (0-0.8); Eosinophils % (auto) 2.9 % (0.0-7.0); Hematocrit 40.1 % (41.0-53.0); Hemoglobin 13.6 g/dL (13.5-17.5); Lymphocytes # (auto) 1.5 10 ^3/uL (0.4-5.4); Lymphocytes % (auto) 32.7 % (10.0-50.0); Mean Corpuscular Hemoglobin 28.6 pg (28.0-32.0); Monocytes # (auto) 0.4 10 ^3/uL (0-1.3); Monocytes % (auto) 7.8 % (0.0-12.0); Neutrophils # (auto) 2.6 10 ^3/uL (1.6-8.6); Neutrophils % (auto) 55.7 % (37.0-80.0); Nucleated Red Blood Cells % 0.1 %; Red Blood Cells 4.77 10^6/uL (4.5-5.90); Red Cell Distribution Width 13.4 % (11.8-14.3); White Blood Cell 4.6 10^3/uL (4.4-10.8)
[2023-02-02 11:33] LABS: Calcium 9.7 mg/dL (8.7-10.4); Chloride 105 mmol/L (98-107); Potassium 4.9 mmol/L (3.5-5.1); Sodium 139 mmol/L (136-145)
[2023-02-02 11:34] LABS: Anion Gap 3 (5-15); Carbon Dioxide 31 mmol/L (20-30)
[2023-02-02 11:39] LABS: BUN/Creatinine Ratio 22.7 (10.0-20.0); Blood Urea Nitrogen 22 mg/dL (9-23); Glucose 132 mg/dL (74-106); INR 0.96 (0.9-1.15); Partial Thromboplastin Time 27.1 SEC (24.5-34.5); Prothrombin Time 10.1 sec (9.3-11.8)
[~2023-02-04] VITALS: Ht 165.1 cm; Wt 59.9 kg
[2023-02-04] VITALS (11 sets, daily range): BP systolic 85–127; BP diastolic 53–80; PULSE 68–73; RESP 10–14; TEMP 97.6; O2SAT 93–100
[2023-02-04] MEDS ORDERED: ANGIOMAX 250 MG VIAL IV ONE (12:27)
[2023-02-04] MEDS ORDERED: LIDOCAINE 2%HCL (LOCAL ANESTH.) INJ 20ML MDV ONE (12:27)
[2023-02-04] MEDS ORDERED: IOHEXOL 350 MG/ML 100ML IJ ONE (12:27)
[2023-02-04] MEDS ORDERED: fentaNYL CITRATE 100 MCG/2 ML VL ONE (12:29)
[2023-02-04] MEDS ORDERED: SODIUM CHL 0.9% 0 ML ONE (12:30)
[2023-02-04] MEDS ORDERED: MIDAZOLAM HCL 2MG/2ML 2ml VIAL (1mg/ml) ONE (12:30)
== END 2023-02-04 15:20 | disposition home or self-care (01) ==
LOC: CATH 09:59
PROVIDERS: ATTEND Internal Medicine Cardiovascular Disease
DX: R07.89 Other chest pain (principal); I25.2 Old myocardial infarction; E78.5 Hyperlipidemia, unspecified; I11.0 Hypertensive heart disease with heart failure; I50.9 Heart failure, unspecified; Z87.891 Personal history of nicotine dependence; J44.9 Chronic obstructive pulmonary disease, unspecified; Z79.899 Other long term (current) drug therapy; Z98.890 Other specified postprocedural states
CPT/HCPCS: 36415; 80048; 85025; 85610; 85730; 93458; C1894; J1644; J2250; J3010; 99152

== ENCOUNTER 2023-03-01 14:44 | Emergency (ER) | payer MEDICAID ==
[~2023-03-01] VITALS: Ht 165.1 cm; Wt 64.7 kg
[2023-03-01 15:10] VITALS: PULSE 88; RESP 16; O2SAT 98
[2023-03-01 16:32] LABS: Basophils # (auto) 0 10 ^3/uL (0-0.2); Basophils % (auto) 0.7 % (0.0-2.0); Eosinophils # (auto) 0.1 10 ^3/uL (0-0.8); Eosinophils % (auto) 2.4 % (0.0-7.0); Hematocrit 38.2 % (41.0-53.0); Hemoglobin 12.9 g/dL (13.5-17.5); Lymphocytes # (auto) 1.7 10 ^3/uL (0.4-5.4); Lymphocytes % (auto) 29.4 % (10.0-50.0); Mean Corpuscular Hemoglobin 28.2 pg (28.0-32.0); Mean Corpuscular Hgb Conc. 33.8 g/dL (32.0-36.0); Mean Corpuscular Volume 83.4 fL (80.0-100.0); Monocytes # (auto) 0.4 10 ^3/uL (0-1.3); Neutrophils # (auto) 3.5 10 ^3/uL (1.6-8.6); Neutrophils % (auto) 60.5 % (37.0-80.0); Nucleated Red Blood Cells % 0.1 %; Red Blood Cells 4.58 10^6/uL (4.5-5.90); Red Cell Distribution Width 13.2 % (11.8-14.3); White Blood Cell 5.8 10^3/uL (4.4-10.8)
[2023-03-01 17:21] LABS: INR 0.96 (0.9-1.15); Prothrombin Time 10.3 sec (9.3-11.8)
[2023-03-01 17:53] LABS: Alanine Aminotransferase 47 U/L (7-40); Albumin 4.6 g/dL (3.2-4.8); Alkaline Phosphatase 122 U/L (46-116); Anion Gap 6 (5-15); Aspartate Aminotransferase 32 U/L (13-40); BUN/Creatinine Ratio 19.8 (10.0-20.0); Blood Urea Nitrogen 19 mg/dL (9-23); Calcium 9.3 mg/dL (8.7-10.4); Carbon Dioxide 26 mmol/L (20-30); Chloride 109 mmol/L (98-107); Glucose 124 mg/dL (74-106); Potassium 4.1 mmol/L (3.5-5.1); Sodium 141 mmol/L (136-145)
[2023-03-01 17:54] LABS: Bilirubin, Total 0.6 mg/dL (0.2-1.0); Total Protein 7.2 g/dL (5.7-8.2)
[2023-03-01 19:30] VITALS: BP 109/71; PULSE 84; RESP 14; TEMP 97.7; O2SAT 95
== END 2023-03-01 20:40 | disposition home or self-care (01) ==
LOC: ER 14:44
DX: H33.21 Serous retinal detachment, right eye (principal); H43.11 Vitreous hemorrhage, right eye; H21.01 Hyphema, right eye; E11.9 Type 2 diabetes mellitus without complications; E78.5 Hyperlipidemia, unspecified; I25.2 Old myocardial infarction; Z79.899 Other long term (current) drug therapy
CPT/HCPCS: 36415; 80053; 85025; 85610

== ENCOUNTER → 2023-05-06 | Outpatient (CLI) | payer MEDICAID ==
[2023-05-06 09:14] LABS: Chloride 109 mmol/L (98-107); Potassium 4.6 mmol/L (3.5-5.1); Sodium 140 mmol/L (136-145)
[2023-05-06 09:15] LABS: Anion Gap 4 (5-15); Carbon Dioxide 27 mmol/L (20-30)
[2023-05-06 09:16] LABS: Calcium 9.5 mg/dL (8.5-10.1)
[2023-05-06 09:20] LABS: BUN/Creatinine Ratio 21.4 (10.0-20.0); Blood Urea Nitrogen 22 mg/dL (9-23); Creatinine, Urine 62.92 mg/dL (30.0-125.0); Glucose 144 mg/dL (74-106)
== END | disposition home or self-care (01) ==
LOC: LAB 08:11
PROVIDERS: ATTEND Internal Medicine
DX: E11.9 Type 2 diabetes mellitus without complications (principal)
CPT/HCPCS: 36415; 80048; 82043; 82570; 83036

== ENCOUNTER → 2023-09-21 | Outpatient (CLI) | payer MEDICAID ==
[2023-09-21 11:02] LABS: Cholesterol 165 mg/dL (< 200); Triglycerides 67 mg/dL (< 150)
[2023-09-21 11:03] LABS: LDL Cholesterol 95 mg/dL (< 100)
[2023-09-21 11:04] LABS: HDL Cholesterol 61 mg/dL (40-59)
== END | disposition home or self-care (01) ==
LOC: LAB 09:58
PROVIDERS: ATTEND Internal Medicine
DX: R10.9 Unspecified abdominal pain (principal); R19.8 Other specified symptoms and signs involving the digestive system and abdomen
CPT/HCPCS: 36415; 80061; 83036

== ENCOUNTER → 2023-09-28 | Outpatient (CLI) | payer MEDICAID | END | disposition home or self-care (01) | LOC: LAB 14:44 | PROVIDERS: ATTEND Internal Medicine | DX: R10.9 Unspecified abdominal pain (principal); R19.8 Other specified symptoms and signs involving the digestive system and abdomen | CPT/HCPCS: 87045; 87427 ==

== ENCOUNTER → 2023-11-24 | Outpatient (CLI) | payer MEDICAID ==
[2023-11-24 08:23] LABS: Basophils # (auto) 0.1 10 ^3/uL (0-0.2); Basophils % (auto) 1.1 % (0.0-2.0); Eosinophils # (auto) 0.1 10 ^3/uL (0-0.8); Eosinophils % (auto) 2.8 % (0.0-7.0); Hemoglobin 13.1 g/dL (13.5-17.5); Lymphocytes # (auto) 1.6 10 ^3/uL (0.4-5.4); Lymphocytes % (auto) 34.7 % (10.0-50.0); Mean Corpuscular Hemoglobin 28.9 pg (28.0-32.0); Mean Corpuscular Hgb Conc. 34.4 g/dL (32.0-36.0); Monocytes # (auto) 0.3 10 ^3/uL (0-1.3); Monocytes % (auto) 7.3 % (0.0-12.0); Neutrophils # (auto) 2.5 10 ^3/uL (1.6-8.6); Neutrophils % (auto) 54.1 % (37.0-80.0); Nucleated Red Blood Cells % 0.1 %; Red Blood Cells 4.52 10^6/uL (4.5-5.90); Red Cell Distribution Width 13.6 % (11.8-14.3); White Blood Cell 4.7 10^3/uL (4.4-10.8)
[2023-11-24 09:02] LABS: Chloride 107 mmol/L (98-107); Potassium 4.6 mmol/L (3.5-5.1); Sodium 141 mmol/L (136-145)
[2023-11-24 09:03] LABS: Anion Gap 5 (5-15); Calcium 9.5 mg/dL (8.7-10.4); Carbon Dioxide 29 mmol/L (20-30)
[2023-11-24 09:08] LABS: BUN/Creatinine Ratio 24.1 (10.0-20.0); Blood Urea Nitrogen 21 mg/dL (9-23); Glucose 101 mg/dL (74-106)
== END | disposition home or self-care (01) ==
LOC: LAB 07:59
PROVIDERS: ATTEND Internal Medicine
DX: Z12.11 Encounter for screening for malignant neoplasm of colon (principal); E11.9 Type 2 diabetes mellitus without complications
CPT/HCPCS: 36415; 80048; 83036; 85025

== ENCOUNTER → 2024-01-25 | Outpatient (CLI) | payer MEDICAID ==
[2024-01-25 08:37] LABS: Basophils # (auto) 0.1 10 ^3/uL (0-0.2); Basophils % (auto) 1.4 % (0.0-2.0); Eosinophils # (auto) 0.2 10 ^3/uL (0-0.8); Eosinophils % (auto) 3.6 % (0.0-7.0); Hematocrit 30.9 % (41.0-53.0); Hemoglobin 10.4 g/dL (13.5-17.5); Lymphocytes # (auto) 1.3 10 ^3/uL (0.4-5.4); Mean Corpuscular Hemoglobin 28.4 pg (28.0-32.0); Mean Corpuscular Hgb Conc. 33.7 g/dL (32.0-36.0); Mean Corpuscular Volume 84.2 fL (80.0-100.0); Monocytes # (auto) 0.5 10 ^3/uL (0-1.3); Monocytes % (auto) 8.8 % (0.0-12.0); Neutrophils # (auto) 3.3 10 ^3/uL (1.6-8.6); Neutrophils % (auto) 62.2 % (37.0-80.0); Platelet Count (auto) 278 10^3/uL (140-450); Red Blood Cells 3.67 10^6/uL (4.5-5.90); Red Cell Distribution Width 13.7 % (11.8-14.3); White Blood Cell 5.2 10^3/uL (4.4-10.8)
[2024-01-25 09:09] LABS: Chloride 107 mmol/L (98-107); Potassium 4.3 mmol/L (3.5-5.1); Sodium 141 mmol/L (136-145)
[2024-01-25 09:10] LABS: Anion Gap 5 (5-15); Carbon Dioxide 29 mmol/L (20-31)
[2024-01-25 09:11] LABS: Calcium 9.8 mg/dL (8.7-10.4)
[2024-01-25 09:15] LABS: BUN/Creatinine Ratio 20.5 (10.0-20.0); Blood Urea Nitrogen 18 mg/dL (9-23); Glucose 134 mg/dL (74-106)
== END | disposition home or self-care (01) ==
LOC: LAB 08:20
PROVIDERS: ATTEND Internal Medicine
DX: E11.9 Type 2 diabetes mellitus without complications (principal); R33.9 Retention of urine, unspecified
CPT/HCPCS: 36415; 80048; 85025

== ENCOUNTER → 2024-03-22 | Outpatient (CLI) | payer MEDICAID ==
[2024-03-22 11:14] LABS: Eosinophils # (auto) 0.1 10 ^3/uL (0-0.8); Hemoglobin 12.5 g/dL (13.5-17.5); Lymphocytes # (auto) 1.8 10 ^3/uL (0.4-5.4); Mean Corpuscular Hemoglobin 26.8 pg (28.0-32.0); Monocytes # (auto) 0.4 10 ^3/uL (0-1.3); Red Blood Cells 4.68 10^6/uL (4.5-5.90); White Blood Cell 5.2 10^3/uL (4.4-10.8)
[2024-03-22 11:16] LABS: Basophils # (auto) 0.1 10 ^3/uL (0-0.2); Eosinophils % (auto) 2.7 % (0.0-7.0); Hematocrit 38.1 % (41.0-53.0); Lymphocytes % (auto) 34.2 % (10.0-50.0); Mean Corpuscular Hgb Conc. 32.8 g/dL (32.0-36.0); Mean Corpuscular Volume 81.5 fL (80.0-100.0); Monocytes % (auto) 7.6 % (0.0-12.0); Neutrophils # (auto) 2.9 10 ^3/uL (1.6-8.6); Neutrophils % (auto) 54.5 % (37.0-80.0); Nucleated Red Blood Cells % 0.1 %; Platelet Count (auto) 264 10^3/uL (140-450); Red Cell Distribution Width 14.9 % (11.8-14.3)
[2024-03-22 11:47] LABS: Erythrocyte Sedimentation Rate 16 mm/hr (0-20)
== END | disposition home or self-care (01) ==
LOC: LAB 10:53
PROVIDERS: ATTEND Internal Medicine
DX: E11.9 Type 2 diabetes mellitus without complications (principal)
CPT/HCPCS: 36415; 84153; 85025; 85652

== ENCOUNTER → 2024-05-04 | Outpatient (CLI) | payer MEDICAID ==
[2024-05-04 09:15] LABS: Creatinine, Urine 65.4 mg/dL (30.0-125.0)
[2024-05-04 09:18] LABS: Alanine Aminotransferase 35 U/L (7-40); Albumin 4.5 g/dL (3.2-4.8); Anion Gap 2 (5-15); Aspartate Aminotransferase 20 U/L (13-40); BUN/Creatinine Ratio 20.5 (10.0-20.0); Blood Urea Nitrogen 18 mg/dL (9-23); Calcium 10.1 mg/dL (8.7-10.4); Carbon Dioxide 30 mmol/L (20-31); Glucose 99 mg/dL (74-106); LDL Cholesterol 49 mg/dL (< 100); Potassium 4.2 mmol/L (3.5-5.1); Sodium 140 mmol/L (136-145); Triglycerides 65 mg/dL (< 150)
[2024-05-04 09:19] LABS: Alkaline Phosphatase 186 U/L (46-116); Bilirubin, Total 0.6 mg/dL (0.2-1.0); Chloride 108 mmol/L (98-107); Cholesterol 130 mg/dL (< 200); HDL Cholesterol 70 mg/dL (40-59); Total Protein 7.4 g/dL (5.7-8.2)
== END | disposition home or self-care (01) ==
LOC: LAB 08:27
PROVIDERS: ATTEND Internal Medicine
DX: E11.9 Type 2 diabetes mellitus without complications (principal)
CPT/HCPCS: 36415; 80053; 80061; 82043; 82570; 83036

== ENCOUNTER → 2024-08-03 | Outpatient (CLI) | payer MEDICAID ==
[2024-08-03 10:29] LABS: Creatinine, Urine 68.94 mg/dL (30.0-125.0)
[2024-08-03 10:32] LABS: Alanine Aminotransferase 22 U/L (7-40); Anion Gap 6 (5-15); Aspartate Aminotransferase 18 U/L (13-40); BUN/Creatinine Ratio 23.8 (10.0-20.0); Blood Urea Nitrogen 20 mg/dL (9-23); Calcium 9.6 mg/dL (8.7-10.4); Carbon Dioxide 26 mmol/L (20-31); Potassium 4.2 mmol/L (3.5-5.1); Sodium 140 mmol/L (136-145); Total Protein 7.2 g/dL (5.7-8.2)
[2024-08-03 10:33] LABS: Albumin 4.4 g/dL (3.2-4.8); Bilirubin, Total 0.5 mg/dL (0.2-1.0)
[2024-08-03 10:34] LABS: Alkaline Phosphatase 212 U/L (46-116); Chloride 108 mmol/L (98-107); Glucose 111 mg/dL (74-106)
== END | disposition home or self-care (01) ==
LOC: LAB 09:33
PROVIDERS: ATTEND Internal Medicine
DX: E11.9 Type 2 diabetes mellitus without complications (principal)
CPT/HCPCS: 36415; 80053; 82043; 82570; 83036

== ENCOUNTER 2024-11-08 13:06 | Outpatient (CLI) | payer MEDICAID ==
[2024-11-08 14:16] LABS: Creatine Kinase IFCC 167.0 U/L (46-171)
== END 2024-11-08 17:00 | disposition home or self-care (01) ==
LOC: LAB 13:06
PROVIDERS: ATTEND Internal Medicine
DX: I10 Essential (primary) hypertension (principal); E11.9 Type 2 diabetes mellitus without complications; R19.7 Diarrhea, unspecified
CPT/HCPCS: 36415; 82550; 85652; 86141

== ENCOUNTER 2025-02-23 09:20 | Outpatient (CLI) | payer MEDICAID ==
[2025-02-23 09:57] LABS: Hematocrit 39.6 % (41.0-53.0); Hemoglobin 13.6 g/dL (13.5-17.5); Mean Corpuscular Hemoglobin 28.3 pg (28.0-32.0); Mean Corpuscular Volume 82.3 fL (80.0-100.0); Nucleated Red Blood Cells % 0.1 %
[2025-02-23 10:07] LABS: Urine Protein, UAD Negative (Negative)
[2025-02-23 10:42] LABS: Alanine Aminotransferase 28 U/L (7-40); Albumin 4.4 g/dL (3.2-4.8); Alkaline Phosphatase 118 U/L (46-116); Anion Gap 9 (5-15); BUN/Creatinine Ratio 24.7 (10.0-20.0); Bilirubin, Total 0.7 mg/dL (0.2-1.0); Blood Urea Nitrogen 22 mg/dL (9-23); Calcium 9.1 mg/dL (8.7-10.4); Carbon Dioxide 27 mmol/L (20-31); Chloride 104 mmol/L (98-107); Glucose 135 mg/dL (74-106); Potassium 4.0 mmol/L (3.5-5.1); Sodium 140 mmol/L (136-145); Total Protein 7.5 g/dL (5.7-8.2)
== END 2025-02-23 17:00 | disposition home or self-care (01) ==
LOC: LAB 09:20
PROVIDERS: ATTEND Internal Medicine
DX: I10 Essential (primary) hypertension (principal); E11.9 Type 2 diabetes mellitus without complications; Z12.11 Encounter for screening for malignant neoplasm of colon
CPT/HCPCS: 36415; 80053; 81001; 82043; 82570; 83036; 85025